=== PATIENT | female | born 1990 | race American Indian/Alaskan Native ===

== ENCOUNTER 2021-04-24 12:07 | Emergency (ER) | payer SELFPAY ==
[2021-04-24] MEDS ORDERED: ACETAMINOPHEN 325 MG TAB PO ONE (12:35)
[2021-04-24] MEDS ORDERED: dexAMETHasone 4 MG/ML VIAL IM ONE (13:20)
--- NOTE | 2021-04-24 13:23 | Emergency Department Report ---
ED ENT HPI - General Chief complaint: Sore Throat Stated complaint: SWOLLEN/ SORE THROAT Time Seen by Provider: 04/24/21 13:14 Source: patient Mode of arrival: Ambulatory Limitations: No Limitations - History of Present Illness Initial comments: Patient is a 30-year-old female presents emergency room with complaints of a sore throat that began 2 days ago. She states that she feels like her throat is swollen. He states that she has discomfort with swallowing but is still able to tolerate p.o. intake. She has associated fever, chills, fatigue, generalized body aches. She denies any vomiting, diarrhea, cough, shortness of breath. She denies any known sick contacts or recent travel. No past medical history. No allergies to medications. Last menstrual cycle last week. - Related Data Previous Rx's Medication Instructions Recorded Last Taken Type Amoxicillin [Trimox CAP] 500 mg PO BID 10 Days #20 capsule 04/24/21 Unknown Rx Nystas/Diphen/Xyl Visc/Mylanta 30 ml MM Q4H PRN #300 ml 04/24/21 Unknown Rx [Magic Mouthwash] Allergies Allergy/AdvReac Type Severity Reaction Status Date / Time No Known Allergies Allergy Unverified 04/24/21 12:30 ED Dental HPI - General Chief complaint: Sore Throat Stated complaint: SWOLLEN/ SORE THROAT Time Seen by Provider: 04/24/21 13:14 Source: patient Mode of arrival: Ambulatory Limitations: No Limitations - Related Data Previous Rx's Medication Instructions Recorded Last Taken Type Amoxicillin [Trimox CAP] 500 mg PO BID 10 Days #20 capsule 04/24/21 Unknown Rx Nystas/Diphen/Xyl Visc/Mylanta 30 ml MM Q4H PRN #300 ml 04/24/21 Unknown Rx [Magic Mouthwash] Allergies Allergy/AdvReac Type Severity Reaction Status Date / Time No Known Allergies Allergy Unverified 04/24/21 12:30 ED Review of Systems ROS: Stated complaint: SWOLLEN/ SORE THROAT Other details as noted in HPI Comment: All other systems reviewed and negative ED Past Medical Hx - Past Medical History Previous Medical History?: No - Surgical History Past Surgical History?: No - Social History Smoking Status: Never Smoker Substance Use Type: None - Medications Home Medications: Home Medications Medication Instructions Recorded Confirmed Last Taken Type Amoxicillin [Trimox CAP] 500 mg PO BID 10 Days #20 capsule 04/24/21 Unknown Rx Nystas/Diphen/Xyl Visc/Mylanta 30 ml MM Q4H PRN #300 ml 04/24/21 Unknown Rx [Magic Mouthwash] ED Physical Exam - General Limitations: No Limitations General appearance: alert, in no apparent distress - Head Head exam: Present: atraumatic, normocephalic - Eye Eye exam: Present: normal appearance - ENT ENT exam: Present: mucous membranes moist, TM's normal bilaterally, normal external ear exam, other (moderate bilateral tonsillar hypertrophy with exudates, uvula is midline, no uvular edema or deviation, no trismus, no tongue elevation, no muffled voice, no submandibular edema, no tongue elevation) - Respiratory Respiratory exam: Present: normal lung sounds bilaterally. Absent: respiratory distress, wheezes, rales, rhonchi, stridor, chest wall tenderness, accessory muscle use, decreased breath sounds, prolonged expiratory - Cardiovascular Cardiovascular Exam: Present: regular rate, normal rhythm, normal heart sounds. Absent: systolic murmur, diastolic murmur, rubs, gallop - Neurological Exam Neurological exam: Present: alert, oriented X3 - Psychiatric Psychiatric exam: Present: normal affect, normal mood - Skin Skin exam: Present: warm, dry, intact ED Course Vital Signs 04/24/21 04/24/21 12:32 14:04 Temperature 102.0 F H Pulse Rate 112 H 91 H Respiratory 20 19 Rate Blood Pressure 135/90 Blood Pressure 124/89 [Left] O2 Sat by Pulse 99 98 Oximetry ED Medical Decision Making - Lab Data Vital Signs 04/24/21 04/24/21 12:32 14:04 Temperature 102.0 F H Pulse Rate 112 H 91 H Respiratory 20 19 Rate Blood Pressure 135/90 Blood Pressure 124/89 [Left] O2 Sat by Pulse 99 98 Oximetry - Medical Decision Making Patient is a 30-year-old female presents emergency room with complaints of a sore throat that began 2 days ago. She states that she feels like her throat is swollen. He states that she has discomfort with swallowing but is still able to tolerate p.o. intake. She has associated fever, chills, fatigue, generalized body aches. She denies any vomiting, diarrhea, cough, shortness of breath. She denies any known sick contacts or recent travel. No past medical history. No allergies to medications. Last menstrual cycle last week. Initial vitals with fever and tachycardia, patient given Tylenol. on exam:moderate bilateral tonsillar hypertrophy with exudates, uvula is midline, no uvular edema or deviation, no trismus, no tongue elevation, no muffled voice, no submandibular edema, no tongue elevation. Examination appears consistent with tonsillitis, no signs of peritonsillar abscess at this time, airways intact. Patient given dexamethasone IM while in the emergency department. Patient given prescription for medications. Advised patient Please take medication as prescribed. Increase your fluid intake. Gargle with warm salt water 3 times a day. Throw away your toothbrush. Do not drink after others and do not allow others to drink after you. May alternate Tylenol and then ibuprofen as needed for fever. May use throat lozenges. Follow-up with a primary care doctor for reexamination. Return to emergency room for any new or symptoms. Critical care attestation.: If time is entered above; I have spent that time in minutes in the direct care of this critically ill patient, excluding procedure time. ED Disposition Clinical Impression: Tonsillitis Disposition: [id number] TO HOME OR SELFCARE Is pt being admited?: No Does the pt Need Aspirin: No Condition: Stable Instructions: Tonsillitis, [id number] Additional Instructions: Please take medication as prescribed. Increase your fluid intake. Gargle with warm salt water 3 times a day. Throw away your toothbrush. Do not drink after others and do not allow others to drink after you. May alternate Tylenol and then ibuprofen as needed for fever. May use throat lozenges. Follow-up with a primary care doctor for reexamination. Return to emergency room for any new or symptoms. Prescriptions: Nystas/Diphen/Xyl Visc/Mylanta [Magic Mouthwash] 30 ml MM Q4H PRN #300 ml PRN Reason: sore throat Amoxicillin [Trimox CAP] 500 mg PO BID 10 Days #20 capsule Referrals: CHRISTINA YAÑEZ MD [Staff Physician] - 2-3 Days [facility] [Provider Group] - 2-3 Days Time of Disposition: 13:22 Print Language: ESTONIAN
[2021-04-24 14:05] VITALS: BP 124/89
== END 2021-04-24 14:05 | disposition home or self-care (01) ==
LOC: ED 12:07
DX: J03.90 Acute tonsillitis, unspecified (principal); Z79.899 Other long term (current) drug therapy
CPT/HCPCS: 96372; 99282; J1100